=== PATIENT | female | born 1995 | race Caucasian/White ===

== ENCOUNTER → 2016-10-23 | Outpatient (CLI) | payer OTHER ==
[~2016-10-23] MED LIST: CIPR500T21 PO; IBUP200C11 PO; NORG1TAB14 PO; OMG1KC PO; SULF1TAB35 PO
--- NOTE | 2016-10-23 18:57 | Diagnostic Imaging Report ---
EXAMINATION: Transabdominal and transvaginal pelvic ultrasound. INDICATION: Pelvic pain. FINDINGS: The uterus is 6.4 x 4.1 x 3.7 cm. The endometrial stripe is 9 mm in thickness. The right ovary is 5.5 x 5.6 x 5.4 cm. The left ovary is 4.9 x 2.8 x 1.7 cm. In the right ovary, there is a 3.9 x 4.1 x 4.9 cm septated cyst with mild thickening of its septum and its wall and mild vascularity in the wall itself. This is probably a complicated corpus luteum cyst. The ovarian rim demonstrates arterial and venous waveforms. The left ovary is only seen on transabdominal views and vascularity is not well evaluated. The urinary bladder appears unremarkable. IMPRESSION: A 4.9 cm complicated cystic lesion with thickened septation and wall, probably related to complicated corpus luteum cyst. A six-week ultrasound followup is recommended to ensure resolution. Dictated by: Dictated on workstation # [id number]
== END ==
LOC: RAD 13:41
PROVIDERS: ATTEND Obstetrics & Gynecology
DX: N83.201 Unspecified ovarian cyst, right side (principal)
CPT/HCPCS: 76830; 76856

== ENCOUNTER → 2021-04-26 | Outpatient (CLI) | payer OTHER ==
[~2021-04-26] MED LIST changes: -SULF1TAB35 PO; +SULF1TAB38 PO
--- NOTE | 2021-04-26 16:06 | Diagnostic Imaging Report ---
PROCEDURE: US Non-ob pelvis comp/trans. TECHNIQUE: Multiple realtime grayscale images were obtained of the pelvis in various projections endovaginally. Transabdominal imaging was also performed. INDICATION: Right lower quadrant pain. FINDINGS: The uterus measures 5.7 x 3.3 x 2.9 cm. Endometrial stripe is 5 mm. Right ovary measures 3.4 x 3.2 x 2.2 cm. There are multiple small follicular cysts. The left ovary measures 4.3 x 2.7 x 3.1 cm. There are multiple follicular cysts on the left. There is a trace of free fluid. IMPRESSION: Trace of fluid in the cul-de-sac, likely physiologic in nature. No abnormalities noted. Dictated by: Dictated on workstation # [id number]
== END ==
LOC: RAD 14:00
PROVIDERS: ATTEND Obstetrics & Gynecology
DX: R10.31 Right lower quadrant pain (principal)
CPT/HCPCS: 76830; 76856